=== PATIENT | female | born 2000 | race African-American/Black ===

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

== ENCOUNTER 2020-03-23 18:52 | Emergency (ER) | payer SELFPAY ==
[~2020-03-23] VITALS: Ht 154.9 cm; Wt 60.0 kg
[~2020-03-23 18:52] MED LIST: NITR100C62 PO
--- NOTE | 2020-03-23 19:44 | PHYS DOC ---
Past Medical History Past Medical History: Other Additional Past Medical Histor: bad menstral cramping Past Surgical History: No Surgical History Smoking Status: Never Smoker Alcohol Use: Occasionally Drug Use: Marijuana General Adult EDM: Chief Complaint: MULTIPLE COMPLAINTS HPI: HPI: 19 yo F who denies any significant past medical history presents to the ED after returning home from spending a few days in [place], layover in [place], with complaints of sore throat, dull, achy headache, epigastric abdominal pain, nausea, vomiting and diarrhea. Associated weakness and fatigue. States she returned home 3 days ago. Is very concerned that she contracted COVID. LMP was March 19. No past surgical history. ROS: Denies associated neck stiffness or pain, dyspnea, hemoptysis, unilateral leg swelling, melena, hematochezia, hematemesis, chest pain or pressure, orthopnea, headache, diaphoresis, dysuria, hematuria or flank pain. Review of Systems: Review of Systems: Constitutional: Denies fever or chills. [] Eyes: Denies change in visual acuity. [] HENT: Denies nasal congestion or sore throat. [] Respiratory: Denies cough or shortness of breath. [] Cardiovascular: Denies chest pain or edema. [] GI: Denies abdominal pain, nausea, vomiting, bloody stools or diarrhea. [] : Denies dysuria. [] Musculoskeletal: Denies back pain or joint pain. [] Integument: Denies rash. [] Neurologic: Denies headache, focal weakness or sensory changes. [] Endocrine: Denies polyuria or polydipsia. [] Lymphatic: Denies swollen glands. [] Psychiatric: Denies depression or anxiety. [] Heart Score: HEART Score for Chest Pain: HEART Score for Chest Pain Response (Comments) Value History Slighlty/Non-Suspicious 0 ECG Normal 0 Age < 45 0 Risk Factors No Risk Factors 0 Troponin < Normal Limit 0 Total 0 Risk Factors: Risk Factors: DM, Current or recent (<one month) smoker, HTN, HLP, family history of CAD, obesity. Risk Scores: Score 0 - 3: 2.5% MACE over next 6 weeks - Discharge Home Score 4 - 6: 20.3% MACE over next 6 weeks - Admit for Clinical Observation Score 7 - 10: 72.7% MACE over next 6 weeks - Early Invasive Strategies Allergies: Allergies: Allergies Coded Allergies Type Severity Reaction Last Updated Verified No Known Drug Allergies 11/27/16 No Physical Exam: PE: Constitutional: Well developed, well nourished, no acute distress, non-toxic appearance. [] HENT: Normocephalic, atraumatic, bilateral external ears normal, oropharynx moist, no oral exudates, nose normal. Bilateral pharyngeal exudates with right anterior lymphadenopathy Eyes: PERRLA, EOMI, conjunctiva normal, no discharge. [] Neck: Normal range of motion, no tenderness, supple, no stridor. [] Cardiovascular: Tachycardic, no murmur [] Lungs & Thorax: Bilateral breath sounds clear to auscultation [] Abdomen: Bowel sounds normal, soft, no tenderness, no masses, no pulsatile masses. [] Skin: Warm, dry, no erythema, no rash. [] Back: No tenderness, no CVA tenderness. [] Extremities: No tenderness, no cyanosis, no clubbing, ROM intact, no edema. [] Neurologic: Alert and oriented X 3, normal motor function, normal sensory function, no focal deficits noted. [] Psychologic: Affect normal, judgement normal, mood normal. [] Current Patient Data: Labs: Laboratory Tests Test 03/23/20 19:11 POC Urine HCG, Qualitative Hcg negative (Negative) Vital Signs: Vital Signs Date Time Temp Pulse Resp B/P (MAP) Pulse Ox O2 Delivery O2 Flow Rate FiO2 03/23/20 19:13 98.5 115 16 122/66 (84) 99 Room Air 98.5 EKG: EKG: Sinus rhythm at 99 bpm w/first deg avb, no axis deviation, SC 216, otherwise normal intervals, no T wave inversions, no ST elevations or ST depressions Radiology/Procedures: Radiology/Procedures: IMAGING REPORT Signed PATIENT: TIFFANIE JARQUIN KACCOUNT: [id number] : 2000 LOCATION: ER AGE: 19 SEX: F EXAM STATUS: REG ER ORD. PHYSICIAN: STANFORD FITZGERALD DO REASON: soa ucg first PROCEDURE: CHEST AP ONLY Study: CR CHEST AP ONLY Indication: Shortness of air. Comparison: None. Findings: No pneumothorax, lobar consolidation or pleural effusion. Unremarkable cardiomediastinal silhouette and joy. Impression: Normal appearance of the chest. Electronically signed by: MACIEJ LEVIN MD (03/23/2020 8:44 PM) [id number] DICTATED and SIGNED BY: MACIEJ LEVIN MD DATE: 03/23/202043 IMAGING REPORT Signed PATIENT: TIFFANIE JARQUINOUNT: [id number] : 2000 LOCATION: ER AGE: 19 SEX: F EXAM STATUS: REG ER ORD. PHYSICIAN: STANFORD FITZGERALD DO REASON: covid, recent flying PROCEDURE: CT ANGIOGRAPHY CHEST INDICATION: Reason: covid, recent flying / Spl. Instructions: / History: COMPARISON: None. TECHNIQUE: Axial CT images obtained through the chest. Intravenous contrast utilized. Angiogram 3D images processed per protocol. One or more of the following individualized dose reduction techniques were utilized for this examination: 1. Automated exposure control; 2. Adjustment of the mA and/or kV according to patient size; 3. Use of iterative reconstruction technique. FINDINGS: No evidence of pneumothorax. No focal airspace consolidation or edema. Liver is low density which can be seen with fatty infiltration. Spleen partially seen but appears enlarged. Small amount of soft tissue density anterior mediastinum could be from thymic tissue. There are some regions of low density within the spleen ascending thoracic aorta is obscured by motion. No aneurysm at visualized portions of the thoracic aorta. No central pulmonary embolus IMPRESSION: No central pulmonary embolus. No focal airspace consolidation or pulmonary edema. The partially visualized liver is low density. Nonspecific but can be seen with fatty infiltration. Low-density region within the spleen measuring up to approximately 18 mm. Could be from phase of contrast but a low-density lesion is not excluded on this exam and if further clarification is desired nonemergent ultrasound could further evaluate for splenic lesion. Electronically signed by: Umberto Estrada MD (03/24/2020 1:25 AM) [id number] DICTATED and SIGNED BY: UMBERTO ESTRADA MD DATE: 03/24/20 0125 Impression: Patient with a extensive work-up for symptoms that are representing viral syndrome, suspicious for COVID. COVID testing pending. Patient with medical decision-making capacity and refused to wait for CT angios test results. Aware of life-threatening risk. Patient was encouraged to follow-up with her PMD in 24 to 48 hours. Strict ED return precautions were given for increased work of breathing or respiratory distress. All of patient's questions were answered. Patient would not wait for discharge paperwork. Course & Med Decision Making: Course & Med Decision Making Pertinent Labs and Imaging studies reviewed. (See chart for details) [] Dragon Disclaimer: Dragon Disclaimer: This electronic medical record was generated, in whole or in part, using a voice recognition dictation system. Departure Departure Impression: Primary Impression: Viral syndrome Disposition: 07 AGAINST MEDICAL ADVICE Referrals: NO PCP (PCP) Justicifation of Admission Dx: Justifications for Admission: Justification of Admission Dx: N/A STANFORD FITZGERALD DO Mar 23, 2020 19:44
[2020-03-23] MEDS ORDERED: IV NORMAL SALINE 1000ML BAG 1,000 ML IV ONE ×2 (19:45→23:45)
[2020-03-23 20:14] LABS: BASO # 0.1 x10^3/uL (0.0-0.2); BASO % 1 % (0-3); EOS % 0 % (0-3); HEMATOCRIT 29.7 % (36.0-47.0); HEMOGLOBIN 9.4 g/dL (12.0-15.5); LYMPH # 1.2 x10^3/uL (1.0-4.8); LYMPH % 8 % (24-48); MEAN CORPUSCULAR HEMOGLOBIN 23 pg (25-35); MEAN CORPUSCULAR HGB CONC 32 g/dL (31-37); MEAN CORPUSCULAR VOLUME 72 fL (79-100); MONO % 7 % (0-9); NEUT # 13.3 x10^3/uL (1.8-7.7); NEUT % 85 % (31-73); PLATELET COUNT 316 x10^3/uL (140-400); RED CELL DISTRIBUTION WIDTH 18.5 % (11.5-14.5); WHITE BLOOD COUNT 15.7 x10^3/uL (4.0-11.0)
[2020-03-23 20:21] LABS: CALCIUM 9.2 mg/dL (8.5-10.1); CREATININE 0.9 mg/dL (0.6-1.0); GFR 95.6; POTASSIUM 3.8 mmol/L (3.5-5.1)
[2020-03-23 20:25] LABS: PROTHROMBIN TIME PATIENT 13.9 SEC (11.7-14.0)
[2020-03-23 20:32] LABS: MONONUCLEOSIS PATIENT NEGATIVE (NEGATIVE)
[2020-03-23 20:33] LABS: ALBUMIN 3.8 g/dL (3.4-5.0); ALBUMIN/GLOBULIN RATIO 0.9 (1.0-1.7); C-REACTIVE PROTEIN 21.5 mg/L (0-3.3); TOTAL BILIRUBIN 0.5 mg/dL (0.2-1.0); TOTAL PROTEIN 7.9 g/dL (6.4-8.2)
[2020-03-23] MEDS ORDERED: PROCHLORPERAZINE 10 MG/2 ML VIAL. IV ONE (20:45)
[2020-03-23] MEDS ORDERED: KETOROLAC 30 MG/ML VIAL. IVP ONE (20:45)
[2020-03-23] MEDS ORDERED: DEXAMETHASONE SOD PHOS 20 MG/5 ML VIAL. IV ONE (20:45)
--- NOTE | 2020-03-23 20:47 | RAD ---
Study: CR CHEST AP ONLY Indication: Shortness of air. Comparison: None. Findings: No pneumothorax, lobar consolidation or pleural effusion. Unremarkable cardiomediastinal silhouette and joy. Impression: Normal appearance of the chest. Electronically signed by: MACIEJ LEVIN MD (03/23/2020 8:44 PM) [id number]
[2020-03-23 21:11] LABS: % LYMPHS 8 % (24-48); % MONOS 2 % (0-10); % SEGS 90 % (35-66); ANISOCYTOSIS SLIGHT; HYPOCHROMIA MOD; MICROCYTOSIS SLIGHT; PLT ESTIMATE ADEQUATE (ADEQUATE)
[2020-03-23 23:02] VITALS: BP 129/63
[2020-03-24] MEDS ORDERED: CONTRAST GIVEN. MC PRN (00:15)
[2020-03-24] MEDS ORDERED: IOHEXOL 350 MG/ML 100 ML VIAL. IV ONE (00:15)
--- NOTE | 2020-03-24 01:28 | RAD ---
INDICATION: Reason: covid, recent flying / Spl. Instructions: / History: COMPARISON: None. TECHNIQUE: Axial CT images obtained through the chest. Intravenous contrast utilized. Angiogram 3D images processed per protocol. One or more of the following individualized dose reduction techniques were utilized for this examination: 1. Automated exposure control; 2. Adjustment of the mA and/or kV according to patient size; 3. Use of iterative reconstruction technique. FINDINGS: No evidence of pneumothorax. No focal airspace consolidation or edema. Liver is low density which can be seen with fatty infiltration. Spleen partially seen but appears enlarged. Small amount of soft tissue density anterior mediastinum could be from thymic tissue. There are some regions of low density within the spleen ascending thoracic aorta is obscured by motion. No aneurysm at visualized portions of the thoracic aorta. No central pulmonary embolus IMPRESSION: No central pulmonary embolus. No focal airspace consolidation or pulmonary edema. The partially visualized liver is low density. Nonspecific but can be seen with fatty infiltration. Low-density region within the spleen measuring up to approximately 18 mm. Could be from phase of contrast but a low-density lesion is not excluded on this exam and if further clarification is desired nonemergent ultrasound could further evaluate for splenic lesion. Electronically signed by: Александр Collier MD (03/24/2020 1:25 AM) [id number]
--- NOTE | 2020-03-24 06:04 | EKG ---
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
== END 2020-03-24 01:35 | disposition left against medical advice (07) ==
LOC: ER 18:52
DX: B34.9 Viral infection, unspecified (principal); R10.13 Epigastric pain; R51 Headache; R11.2 Nausea with vomiting, unspecified; F12.90 Cannabis use, unspecified, uncomplicated
CPT/HCPCS: 36415; 71045; 71275; 80053; 81025; 83735; 84484; 85007; 85025; 85379; 85610; 85730; 86140; 86308; 87070; 87880; 93005; 96361; 96374; 96375; 99285; J0780; J1100; J1885; J7030; U0003